=== PATIENT | male | born 2000 | race Asian ===

== ENCOUNTER 2022-08-01 17:52 | Emergency (ER) | payer OTHER ==
[2022-08-01] MEDS ORDERED: Boostrix 0.5 ML (Tdap) VIAL (>/=7 yrs of age) ONE (18:38)
[2022-08-01] MEDS ORDERED: Lidocaine 1% PF 5 ML VIAL ONE (18:38)
[2022-08-01] MEDS ORDERED: Bacitracin 1 PK ONE (19:59)
== END 2022-08-01 20:07 | disposition home or self-care (01) ==
LOC: ERS 17:52
DX: S61.012A Laceration without foreign body of left thumb without damage to nail, initial encounter (principal); W23.0XXA Caught, crushed, jammed, or pinched between moving objects, initial encounter; Y93.F2 Activity, caregiving, lifting; Y92.39 Other specified sports and athletic area as the place of occurrence of the external cause; Z23 Encounter for immunization
CPT/HCPCS: 12002; 90471; 90715